=== PATIENT | female | born 1980 | race Two or more races ===

== ENCOUNTER 2025-01-25 11:05 | Day surgery (SDC) | payer MEDICAID, SELFPAY ==
[2025-01-24 13:27] VITALS: BMI 36.4
[2025-01-25] VITALS (10 sets, daily range): BP systolic 122–165; BP diastolic 77–104; PULSE 77–111; RESP 15–25; TEMP 36.7–37; O2SAT 94–99; BMI 36.1
[2025-01-25] MEDS: BENZOCAINE 20% (Hurricaine) SPRAY 1 DOSE TOP (13:27)
[2025-01-25] MEDS: RINGERS LACTATED 1000 ML 1,000 ML 60 ML IV (13:27)
[2025-01-25] MEDS: MIDAZOLAM INJ 1 MG/ML VIAL 2 ML (ASD USE ONLY) 2 MG IVP (13:28)
[2025-01-25] MEDS: fentaNYL CIT INJ 50 mCg/ML AMP 2ML (ASD USE ONLY) IVP (13:29)
[2025-01-25] MEDS: DiphenhydrAMINE INJ 50 MG/ML VIAL 25 MG IVP (13:29)
[2025-01-25] MEDS: ONDANSETRON INJ 2 MG/ML INJ 2 ML 4 MG IVP (13:39)
== END 2025-01-25 14:37 | disposition home or self-care (01) ==
PROVIDERS: Referring Provider Specialist; Visit Provider Specialist
PROC: (CPT 43239; principal; 2025-01-25 12:15)
DX: K21.00 Gastro-esophageal reflux disease with esophagitis, without bleeding (principal); K31.7 Polyp of stomach and duodenum; K44.9 Diaphragmatic hernia without obstruction or gangrene; K31.1 Adult hypertrophic pyloric stenosis; K31.89 Other diseases of stomach and duodenum
CPT/HCPCS: 43239; 81025; J1200; J2250; J2405; J3010; J7120; A9270

== ENCOUNTER 2025-03-07 05:45 | Day surgery (SDC) | payer MEDICAID, SELFPAY ==
[2025-03-04 09:30] VITALS: BMI 36.4
[2025-03-04 10:53] LABS: Collection Type, Urine Clean Catch
[2025-03-04 11:13] LABS: Basophils # (Auto) 0.1 Thou/mm3 (0.0-0.2); Basophils % (Auto) 1 % (0-2.5); Eosinophils # (Auto) 0.1 Thou/mm3 (0.0-0.5); Eosinophils % (Auto) 1 % (0-10); Hematocrit 40.4 % (36.0-46.0); Hemoglobin 13.4 g/dL (12.0-16.0); Immature Granulocytes Auto 0.03 Thou/mm3 (0.00-0.00); Lymphocytes # (Auto) 3.5 Thou/mm3 (1.0-4.8); Lymphocytes % (Auto) 34 % (10-50); Mean Corpuscular HGB Conc 33.2 g/dl (31.0-37.0); Mean Corpuscular Hemoglobin 25.6 pg (25.0-35.0); Mean Corpuscular Volume 77 fL (80-100); Monocytes # (Auto) 0.9 Thou/mm3 (0.0-0.8); Monocytes % (Auto) 8 % (0-12); Neutrophils # (Auto) 5.8 Thou/mm3 (1.8-7.7); Neutrophils % (Auto) 56 % (37-80); Nucleated Red Blood Cell # 0.00 Thou/mm3 (0.00-0.00); Nucleated Red Blood Cell % 0 /100 WBC (0); Platelet Count 368 Thou/mm3 (140-440); RDW Standard Deviation 40.5 fL (36.4-46.3); Red Blood Count 5.24 Miln/mm3 (4.00-5.20); White Blood Count 10.4 Thou/mm3 (3.6-11.0)
[2025-03-04 11:18] LABS: Partial Thromboplastin Time 27.4 Seconds (22.0-36.0)
[2025-03-04 11:22] LABS: Alanine Aminotransferase 17 U/L (10-49); Albumin, Serum 4.5 gm/dL (3.5-5.0); Albumin/Globulin Ratio 1.5 (1.2-2.2); Alkaline Phosphatase 118 U/L (46-116); Anion Gap 12 (7-16); Aspartate Amino Transferase 16 U/L (0-34); BUN/Creatinine Ratio 19 Ratio (12-20); Bilirubin,Total 0.4 mg/dL (0.3-1.2); Blood Urea Nitrogen 15 mg/dL (9-23); Calcium 9.6 mg/dL (8.3-10.6); Calcium (Corrected) 9.6 mg/dL (8.5-10.1); Carbon Dioxide 26.5 mMol/L (20.0-31.0); Chloride 104 mMol/L (98-107); Creatinine (Component) 0.8 mg/dL (0.6-1.3); Estimated Creatinine Clearance 88.5 mL/min (>60); Globulin 3.1 gm/dL (2.3-3.5); Glucose 93 mg/dL (74-106); Osmolality,Calculated 283 (275-295); Potassium 3.6 mMol/L (3.4-5.1); Sodium 142 mMol/L (136-145); Total Protein 7.6 gm/dL (5.7-8.2); eGFR > 60 See Note
[2025-03-04 11:24] LABS: Bacteria,Urine Rare; Bilirubin,Urine Negative (Negative); Blood,Urine Negative (Negative); Clarity,Urine Clear (Clear/Hazy); Color,Urine Yellow (Lt Yel-Yel); Glucose, Urine Negative (Negative); Ketones,Urine 1+ (Negative); Leukocyte Esterase,Urine Negative (Negative); Nitrite,Urine Negative (Negative); PH,Urine 6.0 (5.0-7.0); Protein,Urine Trace (Neg - Trace); RBC,Urine 3 /hpf (0-3); Specific Gravity,Urine 1.035 (1.001-1.035); Squamous Epithelial Cell,Urine 22 /hpf (0-5); Urobilinogen,Urine Negative mg/dL (0.0-1.0); WBC,Urine 2 /hpf (0-5)
[2025-03-07] VITALS (17 sets, daily range): BP systolic 123–157; BP diastolic 80–108; PULSE 75–95; RESP 12–22; TEMP 36.1–36.7; O2SAT 91–100; BMI 36.3
[2025-03-07] MEDS: RINGERS LACTATED 1000 ML 1,000 ML 60 ML IV (06:34)
--- NOTE | 2025-03-07 07:21 | SUR.PREOP ---
Patient expressed gratitude for prayer before their procedure.
--- NOTE | 2025-03-07 12:48 | SUR.PHASEI ---
1248: Pt. arrived with oral airway in place, vitals stable, breathing unlabored, no signs of distress, dressing to ABD CDI, no active bleed noted, ABD Binder in place, singh catheter in place draining clear yellow urine, report received from MD Bruce and Clementina VENTURA.
--- NOTE | 2025-03-07 13:05 | ESOP_ITS ---
Date of Procedure 03/07/25 Pre Op Diagnosis Hiatal hernia and severe gastroesophageal reflux. Post Op Diagnosis Incarcerated hiatal hernia and gastroesophageal reflux. Procedure Laparoscopic hiatal hernia repair for incarcerated hiatal hernia and implantation of a patch phasic ST and Brian fundoplication on 03/07/2020 Findings This patient had a large hiatal hernia that measures about 7 cm about one third of the stomach resided in the chest and it was edematous. There was no gangrenous area. There was significant amount of edema and chronic scar tissue in the location. Procedure Description Patient was interviewed in the preop holding area and the procedure was discussed in detail. Risk benefits and alternatives were also discussed and informed consent is obtained. The patient was then brought to the operating room by the nursing staff. The patient was positioned in supine position on the operating table. Gen. anesthesia was administered in a satisfactory manner. The patient was positioned in the modified lithotomy position in the [facility]. Patient was given prophylactic IV antibiotics half an hour before the procedure started. The Flowtron's are applied to both legs is anti-embolism mechanism. The chest abdomen and genitalia and the legs are prepped and draped in usual manner. An open laparoscopic procedure is carried out and balloon cannula is inserted through the supraumbilical incision. There were adhesions to the peritoneal side of the linea alba and lysis of adhesions was required to insert the balloon cannula. After that the pneumoperitoneum is achieved. The patient is positioned in the reverse Trendelenburg position. The 30? scope is used. Under direct vision a 5 mm cannula is inserted in the subxiphoid location, 10 mm cannula is inserted in the left midclavicular location, a 10 mm cannula is inserted in the left anterior axillary line and a 5 mm cannula is inserted in the right midclavicular line. A Rhonda retractor is used through the subxiphoid incision to retract the left lobe of the liver to the right side. The harmonic ultrasonic jaycee are used to divide the gastrohepatic omentum. The dissection is carried out towards the diaphragmatic hiatus and the esophago- phrenic gastrophrenic and gastrosplenic ligaments are divided with the harmonic ultrasonic jaycee. A retroesophageal window is created protecting the posterior vagus nerve and an umbilical tape is passed around the esophagus to be used as a retractor. Further dissection is carried out in the posterior mediastinum and the esophagus is further freed from the mediastinal structures and the esophagus is pulled down into the abdomen. The greater curvature of the stomach is examined and the short gastric vessels on the greater curvature were divided with harmonic ultrasonic jaycee. The gastrosplenic ligaments are divided in a similar manner and the gastropancreatic ligaments are divided. After the greater curvature and the fundus is freed completely the examination is carried out in the retroesophageal space and small ligaments are divided. The hemostasis is already achieved. The hiatal hernia defect is examined carefully and it is repaired by intra and extracorporeal technique with a 3-0 Ethibond interrupted sutures. The diaphragmatic repair is carried out posterior to the esophagus. Enough space his left around the esophagus to avoid obstruction. At this point phasic's ST bioabsorbable patch was used and tailored in place and placed in an onlay manner over the diaphragmatic repair and sutured in place. Multiple sutures were taken on both the side of the esophagus between the diaphragm and the patch and also patch was sutured over the diaphragmatic repair. Now the Brian 360? fundoplication is carried out. The orogastric tube is removed and a 56 Sammarinese Yin dilator is inserted into the esophagus and stomach by the anesthesiologist. This is used as an internal stent for calibration of the lumen. Now the freed fundus is brought around the esophagus from the left side behind the esophagus to the front on the right side and it is sutured to the left side of the fundus by intracorporeal and extracorporeal techniques using a 3-0 Ethibond interrupted sutures. There are 3 sutures placed to complete the fundoplication. The sutures passed through right and left side of the fundus as well as anterior wall of the esophagus. The Yin dilator is removed. Multiple Lembert stitchs are taken between the right and left side of the fundus to the esophagus. The operative field is thoroughly irrigated with saline solution and the hemostasis is achieved. The umbilical tape is divided and it is removed. The Interceed an anti-adhesion barrier is placed between the liver and the stomach. The Rhonda retractor is removed under direct vision. All the cannulas are removed under laparoscopic vision and there is no bleeding from the cannula site incisions. The balloon cannula is removed and the pneumoperitoneum is allowed to escape. The midline incision is closed in layers. The fascia is approximated by 2-0 Vicryl continuous sutures. The subcutaneous tissue is approximated by 3-0 chromic suture and the skin is approximated by 4-0 nylon interrupted sutures. The trocar site incisions are closed with the 3-0 chromic and a 4-0 Monocryl subcuticular stitches. Steri-Strips were applied. Sterile dressings are applied. The patient tolerated the procedure very well and is transferred to the recovery room in satisfactory condition. Anesthesia GETA Drains None. Pathology / specimen None Estimated Blood Loss 10 Condition Stable Disposition PACU Surgeon Gil Rincon MD Surgical Staff Operation Date: 03/07/25 07:30 Case Staff Anesthesiologist: Alexis Bruce RN First Assistant: Gisela Díaz operating room technologist Clementina VENTURA grain miller helper
[2025-03-07] MEDS: HYDROmorphone INJ 2 MG/ML VIAL 1 MG IVP (13:28)
[2025-03-07] MEDS: KETOROLAC INJ 30 MG/ML VIAL IVP (14:03)
[2025-03-07] MEDS: SIMETHICONE 80 MG CHEW PO (14:17)
[2025-03-07] MEDS: fentaNYL CIT INJ 50 mCg/ML AMP 2ML 25 MCG IVP ×3 (14:18→15:38)
[2025-03-07] MEDS: ONDANSETRON INJ 2 MG/ML INJ 2 ML 4 MG IVP (14:53)
--- NOTE | 2025-03-07 16:33 | SUR.PHASEII ---
1633: Report given to Deirdre Andres RN to resume care of pt, Pt. AAOx4, vitals stable, breathing unlabored, no complaint of pain or nausea, dressing to ABD CDI, ABD Binder in place, singh catheter in place. Trying to wean pt. off oxygen, SPO2 on RA is at 90%.
--- NOTE | 2025-03-07 17:00 | SUR.PHASEII ---
pt awake, alert, able to follow commands, vitals stable, breathing unlabored, dressing to abdomen clean, dry, and intact,abdominal Binder in place, discharge instructions given with spouse present, all questions answered, pt able to dress self and ambulate to bathroom, pt able to urinate without complications after discontinuing singh catheter, pt discharged via wheelchair with all belongings and copies of discharge paperwork.
== END 2025-03-07 17:00 | disposition home or self-care (01) ==
PROVIDERS: Referring Provider Specialist; Visit Provider Specialist
PROC: 0DV44ZZ Restriction of Esophagogastric Junction, Percutaneous Endoscopic Approach (ICD-10-PCS; CPT 43280; principal; 2025-03-07 07:30)
DX: K44.0 Diaphragmatic hernia with obstruction, without gangrene (principal); K21.9 Gastro-esophageal reflux disease without esophagitis; Z01.818 Encounter for other preprocedural examination
CPT/HCPCS: 43282; 36415; 80053; 81001; 85025; 85730; A4217; A4649; C1765; C1781; J0131; J0694; J1100; J1171; J1885; J2250; J2371; J2405; J2704; J3010; J3490; J7120; A9270; J1920